=== PATIENT | female | born 1935 | race Two or more races ===

== ENCOUNTER 2018-03-26 15:27 | Inpatient (IN) | payer MEDICARE, MEDICAID ==
[~2018-03-26] VITALS: Ht 152.4 cm; Wt 60.4 kg
[2018-03-26 17:18] LABS: BASOPHILS # (AUTO) 0.05 x10^3/uL (0-0.1); BASOPHILS % (AUTO) 1 % (0-1); EOSINOPHILS # (AUTO) 0.16 x10^3/uL (0-0.4); EOSINOPHILS % (AUTO) 3 % (1-7); LYMPHOCYTES # (AUTO) 1.28 x10^3/uL (1-3.4); LYMPHOCYTES % (AUTO) 20 % (22-44); MD NO; MEAN CORPUSCULAR HEMOGLOBIN 30.1 pg (27.0-34.8); MEAN CORPUSCULAR HGB CONC 32.3 g/dL (32.4-35.8); MEAN CORPUSCULAR VOLUME 93.2 fL (80-100); MEAN PLATELET VOLUME 8.4 fL (7.4-10.4); MONOCYTES # (AUTO) 0.39 x10^3/uL (0.2-0.8); MONOCYTES % (AUTO) 6 % (2-9); NEUTROPHILS # (AUTO) 4.42 x10^3/uL (1.8-6.8); NEUTROPHILS % (AUTO) 70 % (42-75); PLATELET COUNT 145 x10^3/uL (130-400); RED BLOOD COUNT 4.73 x10^6/uL (3.82-5.3); RED CELL DISTRIBUTION WIDTH 18.1 % (9.6-15.2)
[2018-03-26 17:29] LABS: ANION GAP 13 mmol/L (5-15); CALCIUM 8.3 mg/dL (8.5-10.1); CHLORIDE 109 mmol/L (98-107); CREATININE 1.27 mg/dL (0.55-1.02)
[2018-03-26 17:30] LABS: ALANINE AMINOTRANSFERASE 55 U/L (12-78); ALBUMIN 2.7 g/dL (3.4-5.0)
[2018-03-26] MEDS ORDERED: SODIUM CHLORIDE FLUSH 10ML SYR IVF ONE (17:30)
[2018-03-26 17:31] LABS: ALKALINE PHOSPHATASE 98 U/L (45-117); BILIRUBIN,TOTAL 2.4 mg/dL (0.2-1.0); TOTAL PROTEIN 5.5 g/dL (6.4-8.2)
[2018-03-26 17:34] LABS: TROPONIN I < 0.015 ng/mL (0.000-0.045)
[2018-03-26] MEDS ORDERED: SODIUM CHLORIDE 0.9% 1,000 ML IV SCH (19:40)
[2018-03-26] MEDS ORDERED: BISACODYL 10 MG SUPP PR PRN (20:00)
[2018-03-26] MEDS ORDERED: SODIUM CHLORIDE FLUSH 10ML SYR IVF PRN (20:00)
[2018-03-26] MEDS ORDERED: POLYETHYLENE GLYCOL 17 GM PACKET PO PRN (20:00)
[2018-03-26] MEDS ORDERED: ONDANSETRON ODT 4 MG PO PRN (20:00)
[2018-03-26 20:14] LABS: INTERNATIONAL NORMALIZED RATIO 1.44 (0.93-1.1); PROTHROMBIN TIME 15.1 Seconds (9.6-11.5)
[2018-03-26 20:30] LABS: CULTURE INDICATED? YES; MICROSCOPIC INDICATED
[2018-03-26] MEDS ORDERED: LEVO25TA2 PO (20:36)
[2018-03-26] MEDS ORDERED: FLUO20CA19 PO (20:37)
[2018-03-26] MEDS ORDERED: LANS30CA60 PO (20:37)
[2018-03-26] MEDS: LACTULOSE 20 GM/30 ML UDC PO SCH (22:20)
[2018-03-27 00:02] VITALS: BP 132/68
[2018-03-27] MEDS: LEVOTHYROXINE 25 MCG TABLET PO SCH (06:30)
[2018-03-27] MEDS: PANTOPROZOLE 40MG TABLET PO SCH (06:30)
[2018-03-27 06:49] LABS: ALANINE AMINOTRANSFERASE 46 U/L (12-78); ALBUMIN 2.2 g/dL (3.4-5.0); ANION GAP 10 mmol/L (5-15); CALCIUM 7.6 mg/dL (8.5-10.1); CHLORIDE 110 mmol/L (98-107); CREATININE 1.11 mg/dL (0.55-1.02)
[2018-03-27 06:51] LABS: ALKALINE PHOSPHATASE 78 U/L (45-117); BILIRUBIN,TOTAL 1.6 mg/dL (0.2-1.0); TOTAL PROTEIN 4.5 g/dL (6.4-8.2)
[2018-03-27] MEDS: SENNA/DOCUSATE TABLET PO SCH (07:05)
[2018-03-27 07:17] LABS: MD YES; MEAN CORPUSCULAR HEMOGLOBIN 31.1 pg (27.0-34.8); MEAN CORPUSCULAR HGB CONC 33.3 g/dL (32.4-35.8); MEAN CORPUSCULAR VOLUME 93.2 fL (80-100); MEAN PLATELET VOLUME 8.5 fL (7.4-10.4); PLATELET COUNT 89 x10^3/uL (130-400); RED BLOOD COUNT 4.04 x10^6/uL (3.82-5.3); RED CELL DISTRIBUTION WIDTH 17.4 % (9.6-15.2)
[2018-03-27 07:18] LABS: EOS#(MANUAL) 0.11 x10^3/uL (0.0-0.4); EOS% (MANUAL) 2 % (1-7); LYMPH#(MANUAL) 0.45 x10^3/uL (1-3.4); LYMPHS% (MANUAL) 8 % (22-44); MONOS#(MANUAL) 0.11 x10^3/uL (0.3-2.7); MONOS% (MANUAL) 2 % (2-9); SEG#(MANUAL) 4.93 x10^3/uL (1.8-6.8); SEGS% (MANUAL) 88 % (42-75)
[2018-03-27 07:19] LABS: <PLATELET ESTIMATE> DECREASED; <PLT MORPHOLOGY> NORMAL PLT MORPH; ACANTHOCYTES 1+; ANISOCYTOSIS 2+; ECHINOCYTES 1+; HYPOCHROMIA 1+; OVALOCYTES 1+
[2018-03-27 07:34] VITALS: BP 102/56
[2018-03-27] MEDS: FLUOXETINE 10 MG CAP PO SCH (08:17)
[2018-03-27] MEDS: LACTULOSE 20 GM/30 ML UDC PO SCH ×2 (08:17→21:33)
[2018-03-27] MEDS ORDERED: LIDOCAINE-MPF 1%, 5ML ONE (12:43)
[2018-03-27 14:49] VITALS: BP 104/71
[2018-03-27 18:55] VITALS: BP 109/72
[2018-03-28 01:33] VITALS: BP 97/62
[2018-03-28] MEDS: PANTOPROZOLE 40MG TABLET PO SCH (05:25)
[2018-03-28] MEDS: LEVOTHYROXINE 25 MCG TABLET PO SCH (05:25)
[2018-03-28 05:32] LABS: MEAN CORPUSCULAR HEMOGLOBIN 30.4 pg (27.0-34.8); MEAN CORPUSCULAR HGB CONC 32.6 g/dL (32.4-35.8); MEAN CORPUSCULAR VOLUME 93.1 fL (80-100); RED BLOOD COUNT 4.47 x10^6/uL (3.82-5.3); RED CELL DISTRIBUTION WIDTH 17.8 % (9.6-15.2)
[2018-03-28 05:49] LABS: ANION GAP 11 mmol/L (5-15); CALCIUM 7.6 mg/dL (8.5-10.1); CHLORIDE 113 mmol/L (98-107); CREATININE 0.99 mg/dL (0.55-1.02)
[2018-03-28 05:51] LABS: MEAN PLATELET VOLUME 8.4 fL (7.4-10.4); PLATELET COUNT 70 x10^3/uL (130-400)
[2018-03-28 05:52] LABS: BASOPHILS # (AUTO) 0.01 x10^3/uL (0-0.1); BASOPHILS % (AUTO) 0 % (0-1); EOSINOPHILS # (AUTO) 0.28 x10^3/uL (0-0.4); EOSINOPHILS % (AUTO) 6 % (1-7); LYMPHOCYTES # (AUTO) 0.91 x10^3/uL (1-3.4); LYMPHOCYTES % (AUTO) 18 % (22-44); MD SCAN; MONOCYTES # (AUTO) 0.54 x10^3/uL (0.2-0.8); MONOCYTES % (AUTO) 10 % (2-9); NEUTROPHILS # (AUTO) 3.43 x10^3/uL (1.8-6.8); NEUTROPHILS % (AUTO) 66 % (42-75)
[2018-03-28 08:02] VITALS: BP 99/68
[2018-03-28] MEDS: FLUOXETINE 10 MG CAP PO SCH (08:07)
[2018-03-28] MEDS: LACTULOSE 20 GM/30 ML UDC PO SCH ×2 (08:07→20:05)
[2018-03-28] MEDS: FUROSEMIDE 20 MG TABLET PO SCH (08:17)
[2018-03-28] MEDS: SENNA/DOCUSATE TABLET PO SCH (08:19)
[2018-03-28 13:33] VITALS: BP 112/76
[2018-03-28 20:09] VITALS: BP 113/69
[2018-03-29 01:34] VITALS: BP 103/62
[2018-03-29] MEDS: PANTOPROZOLE 40MG TABLET PO SCH (05:14)
[2018-03-29] MEDS: LEVOTHYROXINE 25 MCG TABLET PO SCH (05:14)
[2018-03-29 06:00] LABS: MEAN CORPUSCULAR HEMOGLOBIN 31.3 pg (27.0-34.8); MEAN CORPUSCULAR HGB CONC 33.9 g/dL (32.4-35.8); MEAN CORPUSCULAR VOLUME 92.5 fL (80-100); MEAN PLATELET VOLUME 8.7 fL (7.4-10.4); PLATELET COUNT 93 x10^3/uL (130-400); RED BLOOD COUNT 4.11 x10^6/uL (3.82-5.3); RED CELL DISTRIBUTION WIDTH 17.6 % (9.6-15.2)
[2018-03-29 06:08] LABS: ANION GAP 11 mmol/L (5-15); CHLORIDE 113 mmol/L (98-107); CREATININE 1.05 mg/dL (0.55-1.02)
[2018-03-29 06:46] LABS: BASOPHILS # (AUTO) 0.03 x10^3/uL (0-0.1); BASOPHILS % (AUTO) 1 % (0-1); EOSINOPHILS # (AUTO) 0.29 x10^3/uL (0-0.4); EOSINOPHILS % (AUTO) 6 % (1-7); LYMPHOCYTES # (AUTO) 1.21 x10^3/uL (1-3.4); LYMPHOCYTES % (AUTO) 24 % (22-44); MD SCAN; MONOCYTES # (AUTO) 0.63 x10^3/uL (0.2-0.8); MONOCYTES % (AUTO) 12 % (2-9); NEUTROPHILS # (AUTO) 2.89 x10^3/uL (1.8-6.8); NEUTROPHILS % (AUTO) 57 % (42-75)
[2018-03-29] MEDS: LACTULOSE 20 GM/30 ML UDC PO SCH (08:04)
[2018-03-29] MEDS: FLUOXETINE 10 MG CAP PO SCH (08:04)
[2018-03-29] MEDS: SENNA/DOCUSATE TABLET PO SCH (08:05)
[2018-03-29] MEDS: FUROSEMIDE 20 MG TABLET PO SCH (08:05)
[2018-03-29 08:15] VITALS: BP 95/65
[2018-03-29] MEDS ORDERED: SPIRONOLACTONE 25 MG TABLET PO SCH (09:00)
[2018-03-29 14:00] VITALS: BP 119/64
[2018-03-29] MEDS ORDERED: FURO20TA3 PO (15:34)
[2018-03-29] MEDS ORDERED: SPIR25TA PO (15:34)
== END 2018-03-29 16:57 | DRG 432 ==
LOC: ED 19:00 → EDIP 19:34 → 4WST 20:33
PROVIDERS: ADMIT Internal Medicine; ATTEND Internal Medicine
PROC: 0W9G3ZZ Drainage of Peritoneal Cavity, Percutaneous Approach (ICD-10-PCS; principal; 2018-03-27)
DX: K70.40 Alcoholic hepatic failure without coma (principal); E43 Unspecified severe protein-calorie malnutrition; J98.11 Atelectasis; J90 Pleural effusion, not elsewhere classified; E87.2 Acidosis; E44.0 Moderate protein-calorie malnutrition; K70.31 Alcoholic cirrhosis of liver with ascites; B18.2 Chronic viral hepatitis C; E03.9 Hypothyroidism, unspecified; K21.9 Gastro-esophageal reflux disease without esophagitis; R62.7 Adult failure to thrive; Z66 Do not resuscitate; Z86.011 Personal history of benign neoplasm of the brain; Z90.710 Acquired absence of both cervix and uterus
CPT/HCPCS: 36415; 49083; 71045; 76700; 80048; 80053; 81001; 82042; 82140; 82945; 83605; 83880; 84157; 84484; 85025; 85610; 85730; 87040; 87070; 87075; 87086; 87205; 88112; 88305; 89051; 93005; 99285; G0378; J7030

== ENCOUNTER 2018-04-05 15:51 | Inpatient (IN) | payer MEDICARE, MEDICAID ==
[~2018-04-05] VITALS: Ht 147.3 cm; Wt 48.0 kg
[~2018-04-05 15:51] MED LIST: FLUO20CA19 PO; FURO20TA3 PO; LANS30CA60 PO; LEVO25TA2 PO; SPIR25TA PO
--- NOTE | 2018-04-05 16:00 | NUR ---
BREAK RN. BIB AMBULANCE FROM [facility] FOR INCREASED ASCITES, ALTERED MENTAL STATUS, AND GENERAL DECLINE/FAILURE TO THRIVE PER EMS. A&O TO VERBAL/PAINFUL STIMULI ONLY PER EMS, OCCASIONALLY NODS TO QUESTIONS. UNKNOWN BASELINE. FSBS 97 PER EMS. RYAN YUSUF AT BEDSIDE FOR EVALUATION, AWAITING ORDERS. ASKED PT IF SHE WAS HAVING PAIN, PT NODS AND MOANS, ASKED PT IF NAME AND CORRECT AND PT ONLY MOANS. THOUSANDSTICKSOR CARE STAFF ATTEMPTING TO BE REACHED TO DISCUSS PT BASELINE. ABD FIRM, DISTENDED, DECREASED BOWEL SOUNDS. CONT PULSE OX, BP, CARDAIC MONITORS APPLIED. COUNTER CLERK [employer] AT BEDSIDE FOR EKG. CALL LIGHT IN REACH. FALL PRECAUTIONS IN PLACE.
--- NOTE | 2018-04-05 16:08 | NUR ---
PT ASKED TO OPEN MOUTH FOR ORAL TEMPERATURE, PT FOLLOWS COMMAND, ORAL TEMP OBTAINED 97.8. DISCUSSED WITH RYAN FAIR.
--- NOTE | 2018-04-05 16:10 | NUR ---
BEDSIDE REPORT AND CARE TO PRIMARY RN LENA AT THIS TIME.
--- NOTE | 2018-04-05 16:44 | NUR ---
Spoke with melina Cortés [phone] Addendum: 04/05/18 at 1645 by ABHIHOST Spoke with melina Cortés [phone]. Pt is full code at this time. [place]. Pt otherwise alert and oriented at baseline.
[2018-04-05 16:56] LABS: BASOPHILS # (AUTO) 0.02 x10^3/uL (0-0.1); BASOPHILS % (AUTO) 0 % (0-1); EOSINOPHILS # (AUTO) 0.21 x10^3/uL (0-0.4); EOSINOPHILS % (AUTO) 5 % (1-7); LYMPHOCYTES # (AUTO) 1.24 x10^3/uL (1-3.4); LYMPHOCYTES % (AUTO) 28 % (22-44); MD NO; MEAN CORPUSCULAR HEMOGLOBIN 31.2 pg (27.0-34.8); MEAN CORPUSCULAR HGB CONC 33.9 g/dL (32.4-35.8); MEAN CORPUSCULAR VOLUME 92.1 fL (80-100); MEAN PLATELET VOLUME 8.2 fL (7.4-10.4); MONOCYTES # (AUTO) 0.54 x10^3/uL (0.2-0.8); MONOCYTES % (AUTO) 12 % (2-9); NEUTROPHILS # (AUTO) 2.47 x10^3/uL (1.8-6.8); NEUTROPHILS % (AUTO) 55 % (42-75); PLATELET COUNT 123 x10^3/uL (130-400); RED BLOOD COUNT 4.07 x10^6/uL (3.82-5.3)
[2018-04-05 17:05] LABS: INTERNATIONAL NORMALIZED RATIO 1.69 (0.93-1.1); PROTHROMBIN TIME 17.6 Seconds (9.6-11.5)
--- NOTE | 2018-04-05 17:06 | NUR ---
ROGER RN ASSISTING PRIMARY RN LENA WITH UA STRAIGHT CATH ONLY. THIS RN ATTEMPTED STRAIGHT CATH ON PT PER RYAN YUSUF X1 AND MURALI RN ATTEMPTED X1, CATH UA UNSUCCESSFUL X2. DISCUSSED WITH RYAN YUSUF AWARE. LENA RN COMPLETED BLADDER SCAN, 936ML NOTED. DISCUSSED WITH RYAN YUSUF, AWARE, AWAITING ADDITIONAL ORDERS. REPORT AND CARE BACK TO PRIMARY RN ELNA.
[2018-04-05 17:07] LABS: ALBUMIN 2.5 g/dL (3.4-5.0); ANION GAP 10 mmol/L (5-15); CHLORIDE 104 mmol/L (98-107)
[2018-04-05 17:10] LABS: ALANINE AMINOTRANSFERASE 42 U/L (12-78); ALKALINE PHOSPHATASE 102 U/L (45-117); BILIRUBIN,TOTAL 4.7 mg/dL (0.2-1.0); CREATININE 1.39 mg/dL (0.55-1.02); TOTAL PROTEIN 5.2 g/dL (6.4-8.2)
--- NOTE | 2018-04-05 17:45 | NUR ---
ROGER RN AT BEDSIDE TO ASSIST DR. OSBORNE WITH STRAIGHT CATH PT. UA COLLECTED VIA STRAIGHT CATH BY DR. OSBORNE AND WALKED TO LAB. 250ML URINE OUTPUT DRAINED BY DR. OSBORNE. DISCUSSED WITH AWARE. LENA LOU RN AT BESIDE FOR REPEAT BLADDER SCAN. REPORT AND CARE TO PRIMARY RN.
[2018-04-05 18:10] LABS: MICROSCOPIC AUTO
[2018-04-05 18:17] LABS: CULTURE INDICATED? YES
[2018-04-05] MEDS ORDERED: OMEP-110 PO (18:30)
[2018-04-05] MEDS ORDERED: LACT10SO28 PO (18:30)
[2018-04-05] MEDS ORDERED: CEFTRIAXONE PMX 1GM/50ML 50 ML IV ONE (18:30)
[2018-04-05] MEDS ORDERED: CEFTRIAXONE PMX 1GM/50ML 50 ML ONE (18:52)
[2018-04-05] MEDS ORDERED: POTASSIUM CHLORIDE 20 MEQ in SODIUM CHLORIDE 0.9% 250 ML IV ONE (19:00)
[2018-04-05] MEDS ORDERED: POTASSIUM CHLORIDE 20 MEQ TAB.ER.PRT PO ONE (19:00)
[2018-04-05] MEDS ORDERED: POTASSIUM CHLORIDE 20 MEQ in SODIUM CHLORIDE 0.9% 1,000 ML IV ONE (19:40)
[2018-04-05] MEDS ORDERED: SODIUM CHLORIDE FLUSH 10ML SYR IVF PRN (20:00)
[2018-04-05] MEDS ORDERED: ONDANSETRON 2MG/ML, 2ML IVPush PRN (20:00)
[2018-04-05] MEDS ORDERED: SODIUM CHLORIDE 0.9% 1,000 ML IV SCH (20:30)
[2018-04-05 20:55] VITALS: BP 118/54
[2018-04-05 21:00] VITALS: BP 118/54
[2018-04-05] MEDS: LACTULOSE 10 GM/15 ML UDC PO SCH (21:51)
[2018-04-05] MEDS ORDERED: MAGNESIUM SULFATE PMX 2GM/50ML 50 ML IV ONE (22:30)
[2018-04-06 00:20] VITALS: BP 95/54
[2018-04-06 01:20] VITALS: BP 95/54
[2018-04-06] MEDS: LEVOTHYROXINE 25 MCG TABLET PO SCH (05:32)
[2018-04-06 05:56] LABS: ALBUMIN 2.4 g/dL (3.4-5.0); ANION GAP 12 mmol/L (5-15); CALCIUM 7.8 mg/dL (8.5-10.1); CHLORIDE 107 mmol/L (98-107)
[2018-04-06 06:00] LABS: ALANINE AMINOTRANSFERASE 39 U/L (12-78); ALKALINE PHOSPHATASE 91 U/L (45-117); CREATININE 1.33 mg/dL (0.55-1.02); TOTAL PROTEIN 4.7 g/dL (6.4-8.2)
[2018-04-06 06:19] LABS: MEAN CORPUSCULAR HEMOGLOBIN 31.5 pg (27.0-34.8); MEAN CORPUSCULAR HGB CONC 34.1 g/dL (32.4-35.8); MEAN CORPUSCULAR VOLUME 92.2 fL (80-100); MEAN PLATELET VOLUME 8.5 fL (7.4-10.4); PLATELET COUNT 103 x10^3/uL (130-400); RED BLOOD COUNT 3.76 x10^6/uL (3.82-5.3); RED CELL DISTRIBUTION WIDTH 17.9 % (9.6-15.2)
[2018-04-06] MEDS ORDERED: POTASSIUM CHLORIDE 40 MEQ in SODIUM CHLORIDE 0.9% 100 ML IV SCH (06:30)
[2018-04-06] MEDS: NS + 40MEQ KCL 1,000 ML IV SCH (06:42)
[2018-04-06] MEDS ORDERED: NS + 40MEQ KCL 1,000 ML IV SCH (07:00)
[2018-04-06 07:04] LABS: MD YES
[2018-04-06 07:09] LABS: EOS#(MANUAL) 0.16 x10^3/uL (0.0-0.4); EOS% (MANUAL) 3 % (1-7); LYMPH#(MANUAL) 1.24 x10^3/uL (1-3.4); LYMPHS% (MANUAL) 23 % (22-44); MONOS#(MANUAL) 0.38 x10^3/uL (0.3-2.7); MONOS% (MANUAL) 7 % (2-9); SEG#(MANUAL) 3.62 x10^3/uL (1.8-6.8); SEGS% (MANUAL) 67 % (42-75)
[2018-04-06 07:10] LABS: ANISOCYTOSIS 1+; OVALOCYTES 1+; POLYCHROMASIA 1+
[2018-04-06 07:11] LABS: <PLATELET ESTIMATE> DECREASED; LARGE PLATELETS 1+
[2018-04-06] MEDS: POTASSIUM CHLORIDE 20 MEQ PACKET PO SCH (08:00)
[2018-04-06 08:20] VITALS: BP 90/61
[2018-04-06] MEDS: SPIRONOLACTONE 25 MG TABLET PO SCH (08:54)
[2018-04-06] MEDS ORDERED: FUROSEMIDE 20 MG TABLET PO SCH (09:00)
[2018-04-06] MEDS: OMEPRAZOLE 20 MG CAPSULE.DR PO SCH (09:00)
[2018-04-06] MEDS: LACTULOSE 10 GM/15 ML UDC PO SCH ×2 (09:00→20:59)
[2018-04-06] MEDS ORDERED: POTASSIUM CHLORIDE 20 MEQ in SODIUM CHLORIDE 0.9% 250 ML IV ONE (12:00)
[2018-04-06 16:41] VITALS: BP 96/60
[2018-04-06] MEDS: CEFTRIAXONE PMX 1GM/50ML 50 ML IV SCH (18:30)
[2018-04-06 20:30] VITALS: BP 104/65
[2018-04-07 02:39] VITALS: BP 105/60
[2018-04-07] MEDS: NS + 40MEQ KCL 1,000 ML IV SCH (04:00)
[2018-04-07] MEDS: LEVOTHYROXINE 25 MCG TABLET PO SCH (05:36)
[2018-04-07 06:16] LABS: MEAN CORPUSCULAR HEMOGLOBIN 30.9 pg (27.0-34.8); MEAN CORPUSCULAR HGB CONC 33.5 g/dL (32.4-35.8); MEAN CORPUSCULAR VOLUME 92.3 fL (80-100); PLATELET COUNT 96 x10^3/uL (130-400); RED BLOOD COUNT 3.43 x10^6/uL (3.82-5.3); RED CELL DISTRIBUTION WIDTH 18.2 % (9.6-15.2)
[2018-04-07 06:19] LABS: MD MORPH REVIEW ONLY
[2018-04-07 06:20] LABS: BASOPHILS # (AUTO) 0.02 x10^3/uL (0-0.1); BASOPHILS % (AUTO) 0 % (0-1); EOSINOPHILS % (AUTO) 7 % (1-7); LYMPHOCYTES # (AUTO) 1.24 x10^3/uL (1-3.4); LYMPHOCYTES % (AUTO) 21 % (22-44); MONOCYTES # (AUTO) 0.56 x10^3/uL (0.2-0.8); MONOCYTES % (AUTO) 10 % (2-9); NEUTROPHILS # (AUTO) 3.64 x10^3/uL (1.8-6.8); NEUTROPHILS % (AUTO) 62 % (42-75)
[2018-04-07 06:21] LABS: ANISOCYTOSIS 1+; OVALOCYTES 1+; POLYCHROMASIA 1+
[2018-04-07 06:22] LABS: <PLATELET ESTIMATE> DECREASED; <PLT MORPHOLOGY> NORMAL PLT MORPH; TARGET CELLS 1+
[2018-04-07 07:16] VITALS: BP 93/59
[2018-04-07] MEDS: POTASSIUM CHLORIDE 20 MEQ PACKET PO SCH (08:00)
[2018-04-07 08:17] LABS: CREATININE 0.95 mg/dL (0.55-1.02)
[2018-04-07 08:28] LABS: ANION GAP 13 mmol/L (5-15)
[2018-04-07 08:34] LABS: CHLORIDE 115 mmol/L (98-107)
[2018-04-07] MEDS: SPIRONOLACTONE 25 MG TABLET PO SCH (09:00)
[2018-04-07] MEDS: LACTULOSE 10 GM/15 ML UDC PO SCH ×2 (09:00→20:49)
[2018-04-07] MEDS: TAMSULOSIN 0.4 MG CAP.ER.24H PO SCH (09:00)
[2018-04-07] MEDS: OMEPRAZOLE 20 MG CAPSULE.DR PO SCH (09:00)
[2018-04-07 13:55] VITALS: BP 101/66
[2018-04-07] MEDS ORDERED: LIDOCAINE-MPF 1%, 5ML ONE (15:38)
[2018-04-07] MEDS: CEFTRIAXONE PMX 1GM/50ML 50 ML IV SCH (18:42)
[2018-04-07 19:28] LABS: CELLS COUNTED 377
[2018-04-07 20:35] VITALS: BP 95/61
[2018-04-08] MEDS: NS + 40MEQ KCL 1,000 ML IV SCH (01:12)
[2018-04-08 02:10] VITALS: BP 90/60
[2018-04-08 05:23] VITALS: BP 95/62
[2018-04-08] MEDS: LEVOTHYROXINE 25 MCG TABLET PO SCH (05:35)
[2018-04-08 07:35] LABS: CALCIUM 7.7 mg/dL (8.5-10.1)
[2018-04-08 07:36] LABS: CREATININE 0.98 mg/dL (0.55-1.02)
[2018-04-08 07:39] LABS: ANION GAP 11 mmol/L (5-15); CHLORIDE 118 mmol/L (98-107)
[2018-04-08 07:42] LABS: BASOPHILS # (AUTO) 0.07 x10^3/uL (0-0.1); BASOPHILS % (AUTO) 2 % (0-1); EOSINOPHILS # (AUTO) 0.31 x10^3/uL (0-0.4); EOSINOPHILS % (AUTO) 6 % (1-7); LYMPHOCYTES # (AUTO) 1.04 x10^3/uL (1-3.4); LYMPHOCYTES % (AUTO) 21 % (22-44); MD SCAN; MEAN CORPUSCULAR HEMOGLOBIN 31.2 pg (27.0-34.8); MEAN CORPUSCULAR HGB CONC 33.6 g/dL (32.4-35.8); MEAN CORPUSCULAR VOLUME 92.9 fL (80-100); MEAN PLATELET VOLUME 8.4 fL (7.4-10.4); MONOCYTES # (AUTO) 0.59 x10^3/uL (0.2-0.8); MONOCYTES % (AUTO) 12 % (2-9); NEUTROPHILS # (AUTO) 2.84 x10^3/uL (1.8-6.8); NEUTROPHILS % (AUTO) 59 % (42-75); PLATELET COUNT 90 x10^3/uL (130-400); RED BLOOD COUNT 3.67 x10^6/uL (3.82-5.3); RED CELL DISTRIBUTION WIDTH 18.4 % (9.6-15.2)
[2018-04-08 08:19] VITALS: BP 91/58
[2018-04-08] MEDS: LACTULOSE 10 GM/15 ML UDC PO SCH ×2 (09:00→21:56)
[2018-04-08] MEDS: OMEPRAZOLE 20 MG CAPSULE.DR PO SCH (09:00)
[2018-04-08] MEDS: TAMSULOSIN 0.4 MG CAP.ER.24H PO SCH (09:00)
[2018-04-08] MEDS: SPIRONOLACTONE 25 MG TABLET PO SCH (09:00)
[2018-04-08] MEDS: DEXTROSE 5% 1,000 ML IV SCH (11:38)
[2018-04-08 15:14] VITALS: BP 102/62
--- NOTE | 2018-04-08 15:30 | NUR ---
HIV/AIDS CARE NURSE recommend; HOOD/ NTL -No straws -Up at 90 degrees -Alternate solids and liquids -Meds crushed orange sheet posted in room Addendum: 04/08/18 at [address] Amended: Links added.
[2018-04-08] MEDS: CEFTRIAXONE PMX 1GM/50ML 50 ML IV SCH (17:12)
[2018-04-08 20:00] VITALS: BP 128/64
[2018-04-09 02:00] VITALS: BP 117/68
[2018-04-09] MEDS: LEVOTHYROXINE 25 MCG TABLET PO SCH (05:31)
[2018-04-09 06:24] LABS: ANION GAP 8 mmol/L (5-15); CALCIUM 7.3 mg/dL (8.5-10.1); CHLORIDE 116 mmol/L (98-107)
[2018-04-09 06:27] LABS: CREATININE 0.93 mg/dL (0.55-1.02)
[2018-04-09 07:21] LABS: MEAN CORPUSCULAR HEMOGLOBIN 30.4 pg (27.0-34.8); MEAN CORPUSCULAR VOLUME 95.2 fL (80-100); MEAN PLATELET VOLUME 7.6 fL (7.4-10.4); PLATELET COUNT 85 x10^3/uL (130-400); RED BLOOD COUNT 3.98 x10^6/uL (3.82-5.3); RED CELL DISTRIBUTION WIDTH 19.1 % (9.6-15.2)
[2018-04-09 07:44] VITALS: BP 100/65
[2018-04-09 08:06] LABS: BASOPHILS # (AUTO) 0.02 x10^3/uL (0-0.1); BASOPHILS % (AUTO) 0 % (0-1); EOSINOPHILS # (AUTO) 0.36 x10^3/uL (0-0.4); EOSINOPHILS % (AUTO) 7 % (1-7); LYMPHOCYTES # (AUTO) 1.19 x10^3/uL (1-3.4); LYMPHOCYTES % (AUTO) 21 % (22-44); MD SCAN; MONOCYTES # (AUTO) 0.73 x10^3/uL (0.2-0.8); MONOCYTES % (AUTO) 13 % (2-9); NEUTROPHILS % (AUTO) 59 % (42-75)
[2018-04-09] MEDS: DEXTROSE 5% 1,000 ML IV SCH (08:48)
[2018-04-09] MEDS: LACTULOSE 10 GM/15 ML UDC PO SCH ×2 (08:48→21:00)
[2018-04-09] MEDS: SPIRONOLACTONE 25 MG TABLET PO SCH (08:48)
[2018-04-09] MEDS: OMEPRAZOLE 20 MG CAPSULE.DR PO SCH (08:48)
[2018-04-09] MEDS: TAMSULOSIN 0.4 MG CAP.ER.24H PO SCH (08:48)
[2018-04-09 14:14] VITALS: BP 101/67
[2018-04-09] MEDS: CEFTRIAXONE PMX 1GM/50ML 50 ML IV SCH (17:55)
[2018-04-09 20:00] VITALS: BP 120/55
[2018-04-10 02:00] VITALS: BP 113/66
[2018-04-10] MEDS: LEVOTHYROXINE 25 MCG TABLET PO SCH (06:00)
[2018-04-10 06:16] LABS: CALCIUM 7.4 mg/dL (8.5-10.1); CHLORIDE 113 mmol/L (98-107)
[2018-04-10 06:20] LABS: ANION GAP 9 mmol/L (5-15); CREATININE 0.85 mg/dL (0.55-1.02)
[2018-04-10 06:27] LABS: MEAN CORPUSCULAR HEMOGLOBIN 31.5 pg (27.0-34.8); MEAN CORPUSCULAR HGB CONC 33.8 g/dL (32.4-35.8); MEAN CORPUSCULAR VOLUME 93.3 fL (80-100); PLATELET COUNT 97 x10^3/uL (130-400); RED BLOOD COUNT 3.58 x10^6/uL (3.82-5.3); RED CELL DISTRIBUTION WIDTH 18.6 % (9.6-15.2)
[2018-04-10 06:46] LABS: BASOPHILS # (AUTO) 0.01 x10^3/uL (0-0.1); BASOPHILS % (AUTO) 0 % (0-1); EOSINOPHILS # (AUTO) 0.49 x10^3/uL (0-0.4); EOSINOPHILS % (AUTO) 9 % (1-7); LYMPHOCYTES # (AUTO) 1.04 x10^3/uL (1-3.4); LYMPHOCYTES % (AUTO) 19 % (22-44); MD SCAN; MONOCYTES # (AUTO) 0.69 x10^3/uL (0.2-0.8); MONOCYTES % (AUTO) 13 % (2-9); NEUTROPHILS # (AUTO) 3.28 x10^3/uL (1.8-6.8); NEUTROPHILS % (AUTO) 60 % (42-75)
[2018-04-10 07:49] VITALS: BP 104/67
[2018-04-10] MEDS: LACTULOSE 10 GM/15 ML UDC PO SCH ×2 (09:00→21:47)
[2018-04-10] MEDS: SPIRONOLACTONE 25 MG TABLET PO SCH (09:00)
[2018-04-10] MEDS: TAMSULOSIN 0.4 MG CAP.ER.24H PO SCH (09:00)
[2018-04-10] MEDS: OMEPRAZOLE 20 MG CAPSULE.DR PO SCH (09:00)
[2018-04-10 14:36] VITALS: BP 110/67
[2018-04-10] MEDS: CEFTRIAXONE PMX 1GM/50ML 50 ML IV SCH (16:49)
[2018-04-10 20:00] VITALS: BP 101/68
[2018-04-11 02:00] VITALS: BP 139/58
[2018-04-11] MEDS: LEVOTHYROXINE 25 MCG TABLET PO SCH (05:38)
[2018-04-11 06:08] LABS: BASOPHILS # (AUTO) 0.01 x10^3/uL (0-0.1); BASOPHILS % (AUTO) 0 % (0-1); EOSINOPHILS # (AUTO) 0.37 x10^3/uL (0-0.4); EOSINOPHILS % (AUTO) 7 % (1-7); LYMPHOCYTES # (AUTO) 1.13 x10^3/uL (1-3.4); LYMPHOCYTES % (AUTO) 20 % (22-44); MD NO; MEAN CORPUSCULAR HEMOGLOBIN 31.1 pg (27.0-34.8); MEAN CORPUSCULAR HGB CONC 33.1 g/dL (32.4-35.8); MONOCYTES # (AUTO) 0.64 x10^3/uL (0.2-0.8); MONOCYTES % (AUTO) 11 % (2-9); NEUTROPHILS # (AUTO) 3.54 x10^3/uL (1.8-6.8); NEUTROPHILS % (AUTO) 62 % (42-75); PLATELET COUNT 110 x10^3/uL (130-400); RED BLOOD COUNT 3.74 x10^6/uL (3.82-5.3); RED CELL DISTRIBUTION WIDTH 19.3 % (9.6-15.2)
[2018-04-11 06:21] LABS: CHLORIDE 112 mmol/L (98-107)
[2018-04-11 06:28] LABS: ALBUMIN 2.2 g/dL (3.4-5.0); ANION GAP 8 mmol/L (5-15); CALCIUM 7.8 mg/dL (8.5-10.1); CREATININE 0.99 mg/dL (0.55-1.02)
[2018-04-11 07:25] VITALS: BP 102/66
[2018-04-11] MEDS: SPIRONOLACTONE 25 MG TABLET PO SCH (08:43)
[2018-04-11] MEDS: LACTULOSE 10 GM/15 ML UDC PO SCH ×2 (08:43→21:14)
[2018-04-11] MEDS: TAMSULOSIN 0.4 MG CAP.ER.24H PO SCH (08:44)
[2018-04-11] MEDS: PANTOPRAZOLE GRAN. PKT 40 MG PO SCH (08:50)
[2018-04-11] MEDS ORDERED: PANTOPRAZOLE GRAN. PKT 40 MG PO SCH ×2 (09:00)
[2018-04-11 13:20] VITALS: BP 132/78
[2018-04-11] MEDS: SODIUM CHLORIDE 0.9% 1,000 ML IV SCH (14:44)
[2018-04-11] MEDS: CEFTRIAXONE PMX 1GM/50ML 50 ML IV SCH (17:26)
[2018-04-11 19:59] VITALS: BP 92/60
[2018-04-12] VITALS (7 sets, daily range): BP systolic 73–102; BP diastolic 40–63
[2018-04-12] MEDS: SODIUM CHLORIDE 0.9% 1,000 ML IV SCH (04:00)
[2018-04-12] MEDS: LEVOTHYROXINE 25 MCG TABLET PO SCH (05:21)
[2018-04-12 06:08] LABS: MEAN CORPUSCULAR HEMOGLOBIN 31.5 pg (27.0-34.8); MEAN CORPUSCULAR HGB CONC 33.8 g/dL (32.4-35.8); MEAN PLATELET VOLUME 7.9 fL (7.4-10.4); PLATELET COUNT 92 x10^3/uL (130-400); RED BLOOD COUNT 3.37 x10^6/uL (3.82-5.3); RED CELL DISTRIBUTION WIDTH 18.8 % (9.6-15.2)
[2018-04-12 06:15] LABS: ALBUMIN 2.1 g/dL (3.4-5.0); ANION GAP 8 mmol/L (5-15); CALCIUM 7.4 mg/dL (8.5-10.1); CHLORIDE 114 mmol/L (98-107)
[2018-04-12 06:17] LABS: CREATININE 1.11 mg/dL (0.55-1.02)
[2018-04-12 06:28] LABS: BASOPHILS # (AUTO) 0.02 x10^3/uL (0-0.1); BASOPHILS % (AUTO) 0 % (0-1); EOSINOPHILS # (AUTO) 0.23 x10^3/uL (0-0.4); EOSINOPHILS % (AUTO) 4 % (1-7); LYMPHOCYTES # (AUTO) 0.83 x10^3/uL (1-3.4); LYMPHOCYTES % (AUTO) 15 % (22-44); MD SCAN; MONOCYTES # (AUTO) 0.87 x10^3/uL (0.2-0.8); MONOCYTES % (AUTO) 15 % (2-9); NEUTROPHILS # (AUTO) 3.75 x10^3/uL (1.8-6.8); NEUTROPHILS % (AUTO) 66 % (42-75)
[2018-04-12] MEDS: LACTULOSE 10 GM/15 ML UDC PO SCH ×2 (09:00→20:53)
[2018-04-12] MEDS ORDERED: SODIUM CHLORIDE 0.9%, 250ML IVBOLUS ONE ×2 (09:00→22:30)
[2018-04-12] MEDS: ALBUMIN HUMAN 25% 50 ML IV SCH ×4 (09:00→20:50)
[2018-04-12] MEDS: PANTOPRAZOLE GRAN. PKT 40 MG PO SCH (09:08)
[2018-04-12 11:10] LABS: INTERNATIONAL NORMALIZED RATIO 1.76 (0.93-1.1); PROTHROMBIN TIME 18.3 Seconds (9.6-11.5)
[2018-04-12] MEDS ORDERED: SODIUM CHLORIDE 0.9% 1,000 ML IV SCH (14:30)
[2018-04-12] MEDS ORDERED: LIDOCAINE-MPF 1%, 5ML ONE (14:40)
[2018-04-12 16:57] LABS: CELLS COUNTED 44
[2018-04-12] MEDS: CEFTRIAXONE PMX 1GM/50ML 50 ML IV SCH (17:28)
[2018-04-13] MEDS ORDERED: SODIUM CHLORIDE 0.9%, 250ML IVBOLUS ONE ×2 (00:30→08:00)
[2018-04-13] MEDS: ALBUMIN HUMAN 25% 50 ML IV SCH (00:38)
[2018-04-13 01:35] VITALS: BP 79/46
[2018-04-13 03:57] VITALS: BP 74/44
[2018-04-13] MEDS: LEVOTHYROXINE 25 MCG TABLET PO SCH (06:26)
[2018-04-13 07:23] VITALS: BP 81/48
[2018-04-13] MEDS ORDERED: PIPERACILLIN/TAZO/PMX 3.375GM 50 ML IV SCH (07:30)
[2018-04-13 07:33] VITALS: BP 80/45
[2018-04-13] MEDS: PANTOPRAZOLE GRAN. PKT 40 MG PO SCH (08:42)
[2018-04-13] MEDS: LACTULOSE 10 GM/15 ML UDC PO SCH (08:42)
[2018-04-13] MEDS ORDERED: CEFTRIAXONE PMX 1GM/50ML 50 ML IV SCH (11:30)
[2018-04-13] MEDS ORDERED: CEFT1VIA13 IV (11:36)
[2018-04-13] MEDS ORDERED: SODIUM CHLORIDE 0.9% 1,000 ML IV SCH (14:30)
== END 2018-04-13 11:47 | disposition hospice, home (50) | DRG 441 ==
LOC: ED 16:33 → SUATTDRO 19:42 → EDIP 19:55 → 5SO 20:37 → 4EST 04-08 04:54
PROVIDERS: ADMIT Internal Medicine; ATTEND Internal Medicine
PROC: 0T9B70Z Drainage of Bladder with Drainage Device, Via Natural or Artificial Opening (ICD-10-PCS; principal; 2018-04-05)
PROC: 0W9G3ZZ Drainage of Peritoneal Cavity, Percutaneous Approach (ICD-10-PCS; 2018-04-07)
PROC: 0W9G3ZZ Drainage of Peritoneal Cavity, Percutaneous Approach (ICD-10-PCS; 2018-04-12)
DX: K72.90 Hepatic failure, unspecified without coma (principal); G93.41 Metabolic encephalopathy; E43 Unspecified severe protein-calorie malnutrition; N17.9 Acute kidney failure, unspecified; E87.0 Hyperosmolality and hypernatremia; R18.8 Other ascites; K76.6 Portal hypertension; K74.60 Unspecified cirrhosis of liver; K21.9 Gastro-esophageal reflux disease without esophagitis; N30.91 Cystitis, unspecified with hematuria; F32.9 Major depressive disorder, single episode, unspecified; E03.9 Hypothyroidism, unspecified; B18.2 Chronic viral hepatitis C; I95.9 Hypotension, unspecified; B96.1 Klebsiella pneumoniae [K. pneumoniae] as the cause of diseases classified elsewhere; D64.9 Anemia, unspecified; D69.6 Thrombocytopenia, unspecified; E87.6 Hypokalemia; H91.90 Unspecified hearing loss, unspecified ear; R62.7 Adult failure to thrive; Z51.5 Encounter for palliative care; Z66 Do not resuscitate; Z86.011 Personal history of benign neoplasm of the brain; Z74.01 Bed confinement status; Z90.710 Acquired absence of both cervix and uterus; Z68.22 Body mass index [BMI] 22.0-22.9, adult
CPT/HCPCS: 36415; 49083; 70450; 71045; 74176; 76705; 80048; 80053; 81001; 82040; 82042; 82140; 82607; 82945; 83605; 83615; 83690; 83735; 83986; 84157; 84443; 85025; 85610; 86141; 87070; 87075; 87077; 87086; 87186; 87205; 88112; 88305; 89051; 93005; 93970; 96365; 96367; G0378; J0696; J2543; J3480; J7070; P9047; J3475; J7030; J7050

== ENCOUNTER 2018-04-13 11:41 | Inpatient (IN) | payer OTHER ==
[~2018-04-13] VITALS: Ht 142.2 cm; Wt 48.0 kg
[~2018-04-13 11:41] MED LIST changes: +CEFT1VIA13 IV; +LACT10SO28 PO; +OMEP-110 PO
[2018-04-13] MEDS ORDERED: SODIUM CHLORIDE 0.9% 1,000 ML IV SCH (12:49)
[2018-04-13] MEDS ORDERED: SCOPOLAMINE PATCH, 1.5MG PATCH.TD72 TD SCH (13:00)
[2018-04-13] MEDS ORDERED: ATROPINE OPHTH SOLN 1%, 5ML BC PRN (13:00)
[2018-04-13] MEDS: MORPHINE SULFATE 4 MG/ML, 1ML IVPush PRN ×3 (13:52→23:32)
[2018-04-14] MEDS: MORPHINE SULFATE 4 MG/ML, 1ML IVPush PRN ×7 (00:36→09:38)
[2018-04-14] MEDS: LORazepam 2 MG/ML, 1ML IVPush PRN ×2 (03:03→09:38)
== END 2018-04-15 08:45 | disposition expired | DRG 441 ==
LOC: 3NW 11:48
PROVIDERS: ADMIT Internal Medicine; ATTEND Internal Medicine
DX: K72.00 Acute and subacute hepatic failure without coma (principal); E43 Unspecified severe protein-calorie malnutrition; K76.6 Portal hypertension; R18.8 Other ascites; R64 Cachexia; B18.2 Chronic viral hepatitis C; E03.9 Hypothyroidism, unspecified; E86.0 Dehydration; F32.9 Major depressive disorder, single episode, unspecified; H91.90 Unspecified hearing loss, unspecified ear; I10 Essential (primary) hypertension; Z68.23 Body mass index [BMI] 23.0-23.9, adult; K21.9 Gastro-esophageal reflux disease without esophagitis; K74.60 Unspecified cirrhosis of liver; R62.7 Adult failure to thrive; Z66 Do not resuscitate; Z74.01 Bed confinement status; Z86.011 Personal history of benign neoplasm of the brain; Z90.710 Acquired absence of both cervix and uterus
CPT/HCPCS: G0378; J2270; J2060